=== PATIENT | male | born 1955 | race Caucasian/White ===

== ENCOUNTER 2017-03-12 12:13 | Inpatient (IN) | payer OTHER ==
[2017-03-12 14:16] VITALS: BMI 21.5
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
[2017-03-12] MEDS ORDERED: MENTHOL/PHENOL 1 EACH UD MM PRN (15:16)
[2017-03-12] MEDS ORDERED: MAG HYDROX/AL HYDROX/SIMETH 30 ML UNIT-DOSE CUP PO PRN (15:16)
[2017-03-12] MEDS ORDERED: MAGNESIUM CITRATE 300 ML BOTTLE PO PRN (15:16)
[2017-03-12] MEDS ORDERED: chlordiazePOXIDE HCL 25 MG CAPSULE PO PRN (15:16)
[2017-03-12] MEDS ORDERED: guaiFENesin/D-METHORPHAN HB 10 ML UNIT-DOSE CUPS PO PRN (15:16)
[2017-03-12] MEDS ORDERED: hydrOXYzine PAMOATE 50 MG CAPSULE (FP) PO PRN (15:16)
[2017-03-12] MEDS ORDERED: P-EPHED 60MG/TRIPROLIDI 2.5MG TABLET PO PRN (15:16)
[2017-03-12] MEDS ORDERED: ACETAMINOPHEN 325 MG TABLET (FP) PO PRN (15:16)
[2017-03-12] MEDS ORDERED: diphenhydrAMINE HCL 50 MG CAPSULE PO PRN (15:16)
[2017-03-12] MEDS ORDERED: MAGNESIUM HYDROX 2400MG/30ML ORAL SUSPENSION 30 ML CUP PO PRN (15:16)
[2017-03-12] MEDS ORDERED: LOPERAMIDE HCL 2 MG CAPSULE PO PRN (15:16)
[2017-03-12] MEDS ORDERED: IBUPROFEN 400 MG TABLET (FP) PO PRN (15:16)
[2017-03-12] MEDS ORDERED: chlordiazePOXIDE HCL 25 MG CAPSULE PO ONE (15:24)
[2017-03-12 17:12] LABS: URINE APPEARANCE CLEAR; URINE BILIRUBIN NEGATIVE (NEGATIVE); URINE BLOOD 1+ (NEGATIVE); URINE COLOR STRAW; URINE GLUCOSE (UA) NEGATIVE (NEGATIVE); URINE KETONE NEGATIVE (NEGATIVE); URINE LEUK ESTERASE NEGATIVE (NEGATIVE); URINE NITRITE NEGATIVE (NEGATIVE); URINE UROBILINOGEN NEGATIVE mg/dL (0.2-1.0)
[2017-03-12 17:19] LABS: URINE PROTEIN 1+ (NEGATIVE)
[2017-03-12] MEDS: chlordiazePOXIDE HCL 25 MG CAPSULE PO SCH ×2 (17:19→22:09)
[2017-03-12] MEDS: NICOTINE 21 MG/24 HOURS TOPICAL PATCH TD SCH (17:24)
[2017-03-12] MEDS: THIAMINE HCL 100 MG TABLET (FP) PO SCH (22:09)
[2017-03-13] MEDS: chlordiazePOXIDE HCL 25 MG CAPSULE PO SCH ×4 (05:24→22:14)
[2017-03-13 10:04] LABS: MCH 33.5 pg (25.7-33.7); MCHC 33.3 g/dl (32.0-35.9); MEAN CELL VOLUME 100.6 fl (80-96); MEAN PLT VOLUME 9.3 fl (7.5-11.1); PLATELET COUNT 188 K/MM3 (134-434); RDW 13.6 % (11.9-15.9); WHITE BLOOD COUNT 6.8 K/mm3 (4.0-10.0)
[2017-03-13 10:21] LABS: ALBUMIN 4.9 g/dl (3.4-5.0); ANION GAP 10 (8-16); CALCIUM 9.4 mg/dL (8.5-10.1); CO2 26 mmol/L (21-32); GLUCOSE,RANDOM 97 mg/dL (74-106); SGPT/ALT 97 U/L (12-78)
[2017-03-13 10:25] LABS: ALK PHOS 94 U/L (45-117); CREATININE 0.6 mg/dL (0.7-1.3); SGOT/AST 177 U/L (15-37); TOT PROT 8.9 g/dl (6.4-8.2)
[2017-03-13] MEDS: NADOLOL 20 MG TABLET (FP) PO SCH (10:30)
[2017-03-13] MEDS: PRENATAL VITAMINS W/ FOLIC ACID TABLET (FP) PO SCH (10:30)
[2017-03-13] MEDS: NICOTINE 21 MG/24 HOURS TOPICAL PATCH TD SCH (10:32)
--- NOTE | 2017-03-13 12:15 | EKG ---
Test Reason : Blood Pressure : / mmHG Vent. Rate : 057 BPM Atrial Rate : 057 BPM P-R Int : 160 ms QRS Dur : 088 ms QT Int : 466 ms P-R-T Axes : 053 006 011 degrees QTc Int : 453 ms SINUS BRADYCARDIA OTHERWISE NORMAL ECG NO PREVIOUS ECGS AVAILABLE Confirmed by DUARTE EATON, DEANNE ([id number]) on 03/13/2017 12:15:01 PM Referred By: Confirmed By:DEANNE RAMACHANDRAN MD
--- NOTE | 2017-03-13 15:44 | PN ---
S CIWA - CIWA Score Nausea/Vomitin Muscle Tremors: None Anxiety: 5 Agitation: 3 Paroxysmal Sweats: 3 Orientation: 0-Oriented Tacttile Disturbances: 3-Moderate Itch/Numb/Burn Auditory Disturbances: 0-None Visual Disturbances: 0-None Headache: 3-Moderate CIWA-Ar Total Score: 19 [facility] Progress Note (SOAP) Subjective: Sweating, H/A, Anxious. Objective: PT. A & O X 3, OBSERVED AMBULATING ON UNIT. NO ACUTE DISTRESS. 03/13/17 15:40 Vital Signs Temperature 96.9 F L 03/13/17 14:03 Pulse Rate 70 03/13/17 14:03 Respiratory Rate 18 03/13/17 14:03 Blood Pressure 131/88 03/13/17 14:03 O2 Sat by Pulse Oximetry (%) Laboratory Tests 03/12/17 03/13/17 03/13/17 15:00 06:00 06:00 WBC 6.8 RBC 4.75 Hgb 15.9 Hct 47.8 MCV 100.6 H MCH 33.5 MCHC 33.3 RDW 13.6 Plt Count 188 MPV 9.3 Sodium 138 Potassium 3.9 Chloride 102 Carbon Dioxide 26 Anion Gap 10 BUN 5 L Creatinine 0.6 L Creat Clearance w eGFR > 60 Random Glucose 97 Calcium 9.4 Total Bilirubin 2.0 H AST 177 H ALT 97 H Alkaline Phosphatase 94 Total Protein 8.9 H Albumin 4.9 Urine Color Straw Urine Appearance Clear Urine pH 7.0 Ur Specific [place] <= 1.005 Urine Protein 1+ H Urine Glucose (UA) Negative Urine Ketones Negative Urine Blood 1+ H Urine Nitrite Negative Urine Bilirubin Negative Urine Urobilinogen Negative RPR Titer 03/13/17 06:00 WBC RBC Hgb Hct MCV MCH MCHC RDW Plt Count MPV Sodium Potassium Chloride Carbon Dioxide Anion Gap BUN Creatinine Creat Clearance w eGFR Random Glucose Calcium Total Bilirubin AST ALT Alkaline Phosphatase Total Protein Albumin Urine Color Urine Appearance Urine pH Ur Specific [place] Urine Protein Urine Glucose (UA) Urine Ketones Urine Blood Urine Nitrite Urine Bilirubin Urine Urobilinogen RPR Titer Nonreactive LABS NOTED. Assessment: 03/13/17 15:41 WITHDRAWAL SYMPTOMS. Plan: CONTINUE DETOX. REPEAT UA FOR ELEVATED ADMISSION UA BLOOD VALUE. HEPATIC FUNCTION PANEL ON 03/15/2017 FOR ELEVATED ADMISSION LIVER ENZYMES. INCREASE DAILY PO FLUID INTAKE.
[2017-03-13 21:24] LABS: URINE APPEARANCE CLEAR; URINE BILIRUBIN NEGATIVE (NEGATIVE); URINE BLOOD NEGATIVE (NEGATIVE); URINE COLOR AMBER; URINE GLUCOSE (UA) NEGATIVE (NEGATIVE); URINE KETONE NEGATIVE (NEGATIVE); URINE LEUK ESTERASE NEGATIVE (NEGATIVE); URINE NITRITE NEGATIVE (NEGATIVE); URINE UROBILINOGEN 4.0 E.U/dl mg/dL (0.2-1.0)
[2017-03-13 21:38] LABS: URINE PROTEIN 1+ (NEGATIVE)
[2017-03-13 21:45] LABS: URINE MUCUS RARE; URINE RBC 1 /hpf (0-3); URINE WBC 1 /hpf (3-5)
[2017-03-13] MEDS: THIAMINE HCL 100 MG TABLET (FP) PO SCH (22:14)
[2017-03-14] MEDS: chlordiazePOXIDE HCL 25 MG CAPSULE PO SCH ×2 (05:08→10:30)
[2017-03-14] MEDS: NADOLOL 20 MG TABLET (FP) PO SCH (10:30)
[2017-03-14] MEDS: NICOTINE 21 MG/24 HOURS TOPICAL PATCH TD SCH (10:30)
[2017-03-14] MEDS: PRENATAL VITAMINS W/ FOLIC ACID TABLET (FP) PO SCH (10:30)
[2017-03-14] MEDS: NICOTINE POLACRILEX 2 MG GUM BUC PRN (12:05)
--- NOTE | 2017-03-14 15:48 | PN ---
[facility] CIWA - CIWA Score Nausea/Vomitin-No Nausea/No Vomiting Muscle Tremors: 4-Moderate,w/Arms Extend Anxiety: 4-Mod. Anxious/Guarded Agitation: 3 Paroxysmal Sweats: 3 Orientation: 0-Oriented Tacttile Disturbances: 0-None Auditory Disturbances: 0-None Visual Disturbances: 0-None Headache: 0-None Present CIWA-Ar Total Score: 14 S Progress Note (SOAP) Subjective: Sweating,interrupted sleep,restless.anxiety,tremors. Objective: 03/14/17 15:46 Vital Signs - 8 hr 03/14/17 03/14/17 09:42 13:08 Temperature 96.6 F L 96.9 F L Pulse Rate 74 94 H Respiratory 20 20 Rate Blood Pressure 120/80 141/73 Laboratory Tests 03/12/17 03/13/17 03/13/17 15:00 06:00 06:00 WBC 6.8 RBC 4.75 Hgb 15.9 Hct 47.8 MCV 100.6 H MCH 33.5 MCHC 33.3 RDW 13.6 Plt Count 188 MPV 9.3 Sodium 138 Potassium 3.9 Chloride 102 Carbon Dioxide 26 Anion Gap 10 BUN 5 L Creatinine 0.6 L Creat Clearance w eGFR > 60 Random Glucose 97 Calcium 9.4 Total Bilirubin 2.0 H AST 177 H ALT 97 H Alkaline Phosphatase 94 Total Protein 8.9 H Albumin 4.9 Urine Color Straw Urine Appearance Clear Urine pH 7.0 Ur Specific [place] <= 1.005 Urine Protein 1+ H Urine Glucose (UA) Negative Urine Ketones Negative Urine Blood 1+ H Urine Nitrite Negative Urine Bilirubin Negative Urine Urobilinogen Negative Urine RBC Urine WBC Ur Epithelial Cells Urine Mucus RPR Titer 03/13/17 03/13/17 06:00 20:50 WBC RBC Hgb Hct MCV MCH MCHC RDW Plt Count MPV Sodium Potassium Chloride Carbon Dioxide Anion Gap BUN Creatinine Creat Clearance w eGFR Random Glucose Calcium Total Bilirubin AST ALT Alkaline Phosphatase Total Protein Albumin Urine Color Kelli Urine Appearance Clear Urine pH 7.0 Ur Specific [place] 1.015 Urine Protein 1+ H Urine Glucose (UA) Negative Urine Ketones Negative Urine Blood Negative Urine Nitrite Negative Urine Bilirubin Negative Urine Urobilinogen 4.0 e.u/dl Urine RBC 1 Urine WBC 1 Ur Epithelial Cells Rare Urine Mucus Rare RPR Titer Nonreactive labs noted Assessment: 03/14/17 15:47 Withdrawal sx. Plan: Continue detox
[2017-03-14] MEDS: chlordiazePOXIDE 5 MG CAPSULE PO SCH ×2 (17:03→22:23)
[2017-03-14] MEDS: THIAMINE HCL 100 MG TABLET (FP) PO SCH (22:23)
[2017-03-15] MEDS: chlordiazePOXIDE 5 MG CAPSULE PO SCH ×2 (05:28→10:14)
[2017-03-15] MEDS: NICOTINE 21 MG/24 HOURS TOPICAL PATCH TD SCH (10:14)
[2017-03-15] MEDS: PRENATAL VITAMINS W/ FOLIC ACID TABLET (FP) PO SCH (10:14)
[2017-03-15] MEDS: NADOLOL 20 MG TABLET (FP) PO SCH (10:14)
--- NOTE | 2017-03-15 11:44 | PN ---
[facility] Progress Note (SOAP) Subjective: FATIGUE,PT VERY SLEEPY DURING ROUNDS. IN NO ACUTE DISTRESS. Objective: 03/15/17 11:46 Vital Signs Temperature 97.4 F L 03/15/17 10:27 Pulse Rate 63 03/15/17 10:27 Respiratory Rate 18 03/15/17 10:27 Blood Pressure 118/78 03/15/17 10:27 O2 Sat by Pulse Oximetry (%) Laboratory Last Values WBC 6.8 K/mm3 (4.0-10.0) 03/13/17 06:00 RBC 4.75 M/mm3 (4.00-5.60) 03/13/17 06:00 Hgb 15.9 GM/dL (11.7-16.9) 03/13/17 06:00 Hct 47.8 % (35.4-49) 03/13/17 06:00 MCV 100.6 fl (80-96) H 03/13/17 06:00 MCH 33.5 pg (25.7-33.7) 03/13/17 06:00 MCHC 33.3 g/dl (32.0-35.9) 03/13/17 06:00 RDW 13.6 % (11.9-15.9) 03/13/17 06:00 Plt Count 188 K/MM3 (134-434) 03/13/17 06:00 MPV 9.3 fl (7.5-11.1) 03/13/17 06:00 Sodium 138 mmol/L (136-145) 03/13/17 06:00 Potassium 3.9 mmol/L (3.5-5.1) 03/13/17 06:00 Chloride 102 mmol/L (98-107) 03/13/17 06:00 Carbon Dioxide 26 mmol/L (21-32) 03/13/17 06:00 Anion Gap 10 (8-16) 03/13/17 06:00 BUN 5 mg/dL (7-18) L 03/13/17 06:00 Creatinine 0.6 mg/dL (0.7-1.3) L 03/13/17 06:00 Creat Clearance w eGFR > 60 (>60) 03/13/17 06:00 Random Glucose 97 mg/dL (74-106) 03/13/17 06:00 Calcium 9.4 mg/dL (8.5-10.1) 03/13/17 06:00 Total Bilirubin 2.0 mg/dL (0.2-1.0) H 03/13/17 06:00 AST 177 U/L (15-37) H 03/13/17 06:00 ALT 97 U/L (12-78) H 03/13/17 06:00 Alkaline Phosphatase 94 U/L (45-117) 03/13/17 06:00 Total Protein 8.9 g/dl (6.4-8.2) H 03/13/17 06:00 Albumin 4.9 g/dl (3.4-5.0) 03/13/17 06:00 Urine Color Kelli 03/13/17 20:50 Urine Appearance Clear 03/13/17 20:50 Urine pH 7.0 (5.0-8.0) 03/13/17 20:50 Ur Specific [place] 1.015 (1.005-1.025) 03/13/17 20:50 Urine Protein 1+ (NEGATIVE) H 03/13/17 20:50 Urine Glucose (UA) Negative (NEGATIVE) 03/13/17 20:50 Urine Ketones Negative (NEGATIVE) 03/13/17 20:50 Urine Blood Negative (NEGATIVE) 03/13/17 20:50 Urine Nitrite Negative (NEGATIVE) 03/13/17 20:50 Urine Bilirubin Negative (NEGATIVE) 03/13/17 20:50 Urine Urobilinogen 4.0 e.u/dl mg/dL (0.2-1.0) 03/13/17 20:50 Urine RBC 1 /hpf (0-3) 03/13/17 20:50 Urine WBC 1 /hpf (3-5) 03/13/17 20:50 Ur Epithelial Cells Rare /hpf (FEW) 03/13/17 20:50 Urine Mucus Rare 03/13/17 20:50 RPR Titer Nonreactive (NONREACTIVE) 03/13/17 06:00 Assessment: 03/15/17 11:46 WITHDRAWAL SX Plan: CONTINUE DETOX INCREASE PO FLUIDS.
[2017-03-15 14:13] LABS: ALBUMIN 4.7 g/dl (3.4-5.0); BILIRUBIN,DIRECT 0.3 mg/dL (0.0-0.2); BILIRUBIN,TOTAL 0.8 mg/dL (0.2-1.0); TOT PROT 7.5 g/dl (6.4-8.2)
[2017-03-15] MEDS: NICOTINE POLACRILEX 2 MG GUM BUC PRN (17:13)
[2017-03-15] MEDS: chlordiazePOXIDE HCL 10 MG CAPSULE PO SCH ×2 (18:09→22:09)
[2017-03-15] MEDS: THIAMINE HCL 100 MG TABLET (FP) PO SCH (22:09)
[2017-03-16] MEDS: chlordiazePOXIDE HCL 10 MG CAPSULE PO SCH (05:46)
[2017-03-16 06:39] VITALS: BP 115/80; PULSE 94; TEMP 97.1
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
== END 2017-03-16 08:52 | disposition home or self-care (01) | DRG 775 ==
LOC: YASAS 12:13 → Y3N 15:00
PROVIDERS: ADMIT Internal Medicine; ATTEND Internal Medicine
PROC: HZ2ZZZZ Detoxification Services for Substance Abuse Treatment (ICD-10-PCS; principal; 2017-03-12)
DX: F10.230 Alcohol dependence with withdrawal, uncomplicated (principal); F17.210 Nicotine dependence, cigarettes, uncomplicated; F34.1 Dysthymic disorder; I15.8 Other secondary hypertension; B18.2 Chronic viral hepatitis C; K74.60 Unspecified cirrhosis of liver; H91.93 Unspecified hearing loss, bilateral; Z90.49 Acquired absence of other specified parts of digestive tract
CPT/HCPCS: 36415; 80053; 80076; 81003; 81015; 85027; 86593; 93005; 93010